=== PATIENT | male | born 2000 | race Caucasian/White ===

== ENCOUNTER 2024-01-28 09:56 | Emergency (ER) | payer MEDICAID ==
[~2024-01-28] VITALS: Ht 180.3 cm; Wt 63.6 kg
[2024-01-28 10:52] LABS: BASOPHILS # (AUTO) 0.1 X10'3 (0-0.2); EOSINOPHILS % (AUTO) 0.4 % (0-6); HEMATOCRIT 40.5 % (42.0-52.0); HEMOGLOBIN 14.5 g/dl (14.0-17.9); LYMPHOCYTES # (AUTO) 1.3 X10'3 (1.1-4.8); LYMPHOCYTES % (AUTO) 16.3 % (21-51); MEAN CORPUSCULAR HEMOGLOBIN 30.5 PG (27.0-31.0); MEAN CORPUSCULAR HGB CONC 35.7 g/dL (33.0-36.5); MEAN CORPUSCULAR VOLUME 85.4 FL (78-98); MEAN PLATELET VOLUME 8.4 FL (7.4-10.4); MONOCYTES # (AUTO) 0.8 X10'3 (0-0.9); MONOCYTES % (AUTO) 10.6 % (2-12); NEUTROPHILS # (AUTO) 5.6 X10'3 (1.8-7.7); NEUTROPHILS % (AUTO) 71.7 % (42-75); PLATELET COUNT 341 X10'3 (140-440); RED BLOOD COUNT 4.74 X10'6 (4.70-6.10); RED CELL DISTRIBUTION WIDTH 12.5 % (11.5-14.5); WHITE BLOOD COUNT 7.8 X10'3 (4.5-11.0)
[2024-01-28 11:13] LABS: BILIRUBIN,URINE SMALL (Neg); CLARITY,URINE CLOUDY (Clear); COLOR,URINE YELLOW (Yellow); GLUCOSE, URINE NEGATIVE (Neg); KETONES,URINE 15 mg/dl (Neg); LEUKOCYTE ESTERASE ,URINE NEGATIVE (Neg); NITRITES, URINE NEGATIVE (Neg); OCCULT BLOOD,URINE TRACE-INTACT (Neg); PROTEIN,URINE TRACE mg/dl (Neg); UROBILINOGEN,URINE 0.2 E.U/dL (0.2-1.0)
[2024-01-28 11:16] LABS: UA COLLECTION TYPE CLN CATCH MIDSTREAM
[2024-01-28 11:18] LABS: MUCUS STRANDS MANY /LPF (Neg); SQUAMOUS EPITHELIAL CELL,UR FEW /LPF (FEW)
[2024-01-28 11:19] LABS: BACTERIA,URINE FEW /HPF (Neg); RBC,URINE 0-2 /HPF (0-2)
[2024-01-28 11:20] LABS: HYALINE CASTS 0-3 /LPF (NEGATIVE)
[2024-01-28 11:25] LABS: URINE AMPHETAMINE SCREEN NEGATIVE (Neg); URINE BARBITUATE SCREEN NEGATIVE (Neg); URINE BENZODIAZEPINES SCREEN NEGATIVE (Neg); URINE CANNABINOID SCREEN POSITIVE (Neg); URINE COCAINE SCREEN NEGATIVE (Neg); URINE METHADONE SCREEN NEGATIVE (Neg); URINE OPIATE SCREEN NEGATIVE (Neg); URINE PHENCYCLIDINE SCREEN NEGATIVE (Neg)
[2024-01-28 11:28] LABS: ANION GAP 12 (8-16); BLOOD UREA NITROGEN 8 MG/DL (7-18); BUN/CREATININE RATIO 8.3 (10.0-20.0); CALCIUM 9.1 MG/DL (8.5-10.1); CHLORIDE 101 MMOL/L (99-107); CREATININE 0.96 MG/DL (0.60-1.10); ETHANOL < 10 MG/DL (<10); GLUCOSE 103 MG/DL (70-104); SODIUM 140 MMOL/L (135-145); THYROID STIMULATING HORMONE 2.79 ulU/ml (0.34-4.50); TOTAL CARBON DIOXIDE 27.3 MMOL/L (24-32); eCRCL 110 ML/MIN; eGFR > 90 ML/MIN
[2024-01-28 11:42] LABS: POTASSIUM 2.8 MMOL/L (3.5-5.1)
[2024-01-28] MEDS: diphenhydrAMINE 25mg capsule PO ONE (13:01)
[2024-01-28] MEDS: magnesium oxide 400mg tablet PO ONE (13:02)
[2024-01-28] MEDS: potassium Cl 20 mEq SR tablet PO STA (13:02)
[2024-01-28] MEDS: potassium Cl 20 mEq SR tablet PO ONE (13:02)
[2024-01-28] MEDS: OLANZapine 5mg rapidly disint. tablet PO ONE (13:03)
[2024-01-28] MEDS: nicotine 7mg patch - 24hr TD ONE (13:03)
[2024-01-28 16:33] VITALS: BP 143/88; PULSE 102; RESP 18; TEMP 99.7; O2SAT 98
[2024-01-28] MEDS ORDERED: potassium Cl 20 mEq SR tablet PO SCH (21:00)
[2024-01-28] MEDS ORDERED: magnesium oxide 400mg tablet PO SCH (21:00)
[2024-01-29] MEDS ORDERED: nicotine 7mg patch - 24hr TD SCH (08:00)
== END 2024-01-28 16:36 ==
LOC: ER 09:57
DX: F23 Brief psychotic disorder (principal); Z20.822 Contact with and (suspected) exposure to COVID-19; E87.6 Hypokalemia; F17.200 Nicotine dependence, unspecified, uncomplicated; F12.90 Cannabis use, unspecified, uncomplicated; Z88.0 Allergy status to penicillin
CPT/HCPCS: 36415; 80048; 80305; 80320; 81001; 83735; 84443; 85025; 87811; 99291; Q0163